=== PATIENT | female | born 1980 | race Caucasian/White ===

== ENCOUNTER 2017-07-30 10:40 | Day surgery (SDC) | payer MEDICAID ==
[~2017-07-30] VITALS: Ht 182.9 cm; Wt 109.8 kg
[2017-07-30 10:40] VITALS: BP 130/64
[~2017-07-30 10:40] MED LIST: AMIT10TA6 PO; FERR-84 PO; PNV1TABL65 PO
[2017-07-30] MEDS ORDERED: ONDANSETRON 4 MG/2 ML (SDV) Z0FRAN IV ONE (11:00)
[2017-07-30] MEDS ORDERED: FAMOTIDINE 20MG/2ML IV (PEPCID) IV ONE (11:00)
[2017-07-30] MEDS ORDERED: ceFAZolin INJECTION 1,000 MG in NS (IVPB) 50 ML IV ONE (11:00)
[2017-07-30] MEDS ORDERED: BUP/EPI 0.5% 1:200,000 (SENSORCAINE) 30 ML VIAL ONE (11:27)
[2017-07-30 11:38] LABS: HEMOGLOBIN 10.7 G/DL (11.5-16.0); MEAN PLATELET VOLUME 9.5 FL (7.4-10.4); RED BLOOD COUNT 4.45 10^6/uL (4.35-5.85); RED CELL DISTRIBUTION WIDTH 22.4 % (10.0-14.5); WHITE BLOOD COUNT 5.4 10^3/uL (4.3-11.0)
[2017-07-30] MEDS: LACTATED RINGERS 1,000 ML IV PRN ×2 (12:01→14:15)
[2017-07-30] MEDS ORDERED: proPOfol 200 MG/20 ML (DIPRIVAN) VIAL IV ONE (12:55)
[2017-07-30] MEDS ORDERED: ONDANSETRON 4 MG/2 ML (SDV) Z0FRAN ONE (12:55)
[2017-07-30] MEDS ORDERED: NEOSTIGMINE 1 MG/ML 5 ML SYRINGE ONE (12:55)
[2017-07-30] MEDS ORDERED: SEVOFLURANE (ULTANE) 15 ML INHAL SOLN ONE (12:55)
[2017-07-30] MEDS ORDERED: fentaNYL INJECTION 100 MCG/2 ML AMP ONE ×2 (12:55→15:08)
[2017-07-30] MEDS ORDERED: GLYCOPYRROLATE 0.2 MG/ML (ROBINUL) 2 ML VIAL ONE (12:55)
[2017-07-30] MEDS ORDERED: LIDOCAINE PF 2% 5 ML (XYLOCAINE) VIAL ONE (12:55)
[2017-07-30] MEDS ORDERED: DEXAMETHASONE 10 MG/ML (DECADRON) 1 ML VIAL ONE (12:55)
[2017-07-30] MEDS ORDERED: ROCURONIUM 10 MG/ML 5 ML SYRINGE IV ONE (12:55)
[2017-07-30] MEDS ORDERED: MIDAZOLAM 2 MG/2 ML (VERSED) VIAL ONE (12:56)
[2017-07-30] MEDS ORDERED: D5 LR IV SOLUTION 1,000 ML IV SCH (13:31)
--- NOTE | 2017-07-30 13:31 | Progress Note-Pre Operative ---
Pre-Operative Progress Note H&P Reviewed The H&P was reviewed, patient examined and no changes noted. Date Seen by Provider: July 30, 2017 Time Seen by Provider: 13:30 Date H&P Reviewed: July 30, 2017 Time H&P Reviewed: 13:30 Pre-Operative Diagnosis: DUB/menorrhagia/anemia HERMILA SALGADO MD July 30, 2017 1:31 pm
--- NOTE | 2017-07-30 13:31 | Progress Note-Post Operative ---
Post-Operative Progess Note Surgeon (s)/Funeral Planning Counselor (s) Surgeon HERMILA SALGADO MD Funeral Planning Counselor: Joanie Pitts Pre-Operative Diagnosis DUB/menorrhagia/anemia Post-Operative Diagnosis Same with pathology pending Procedure & Operative Findings Date of Procedure 07/30/17 Procedure Performed/Findings TH with bilateral salpingectomy Anesthesia Type GETA Estimated Blood Loss Estimated blood loss (mL): Minimal Specimens/Packing Specimens Removed Uterus and fallopian tubes Packing: none HERMILA SALGADO MD July 30, 2017 1:31 pm
[2017-07-30] MEDS ORDERED: IBUP-1780 PO (13:36)
[2017-07-30] MEDS ORDERED: DOCU-143 PO (13:36)
[2017-07-30] MEDS ORDERED: OXYC-197 PO (13:36)
--- NOTE | 2017-07-30 13:38 | Discharge Instructions ---
Discharge Instructions Discharge Medications New, Converted or Re-Newed RX: RX on Chart Patient Instructions Patient Instructions: as Directed Return to The Hospital For: As directed Activity & Diet Discharge Diet: No Restrictions Activity as Tolerated: No Orders-Post D/C & Referrals Follow Up Appt: Return to clinic on Sunday, August 01, 2017 at 930 a.m. for staple removal Call to make follow up appt. for patient in 4 weeks. Activity: Rest for 24 hours, than as tolerated. Wound Care: May remove Band-Aid tomorrow. Replace as desired. Keep incisions clean and dry. Wash daily with soap and water. Please call in RX to patient pharmacy. Diet: As tolerated-Clear Liquids only if nauseated. may shower or tub bathe as desired. No driving for 24 hours, no alcoholic beverages for 24 hours, and nothing per vagina (no tampons, douching, or intercourse) for 8 weeks. Patient to return to the clinic as soon as possible for: Temperature greater than 101F, Severe Pain, Foul discharge from incision or vagina, Excessive Bleeding (more than a period). HERMILA SALGADO MD July 30, 2017 1:38 pm
[2017-07-30] MEDS ORDERED: ONDANSETRON 4 MG/2 ML (SDV) Z0FRAN IVP PRN ×2 (13:45→15:45)
[2017-07-30] MEDS ORDERED: PROMETHAZINE INJ 25 MG/ML (PHENERGAN) AMP IM PRN (13:45)
[2017-07-30] MEDS ORDERED: KETOROLAC 30 MG/ML VIAL IVP SCH ×2 (13:45→18:00)
[2017-07-30] MEDS ORDERED: MEPERIDINE (DEMEROL) INJ 100 MG/ML IM PRN (13:45)
[2017-07-30] MEDS ORDERED: morphine INJ 10 MG/ML 1ML (SYR OR VIAL) ONE (15:25)
[2017-07-30] MEDS ORDERED: KETOROLAC 30 MG/ML VIAL ONE (15:25)
[2017-07-30] MEDS ORDERED: HYDROmorphone 1 MG/ML (DILAUDID) 1 ML SYRINGE ONE (15:26)
[2017-07-30] MEDS: morphine INJ 10 MG/ML 1ML (SYR OR VIAL) IVP PRN ×2 (15:30→15:37)
[2017-07-30] MEDS: KETOROLAC 30 MG/ML VIAL IVP SCH ×2 (15:32→22:38)
[2017-07-30] MEDS ORDERED: MEPERIDINE (DEMEROL) INJ 50 MG/ML IVP PRN (15:45)
[2017-07-30] MEDS ORDERED: HYDROmorphone 1 MG/ML (DILAUDID) 1 ML SYRINGE IV PRN (15:45)
[2017-07-30 16:10] VITALS: BP 104/66
[2017-07-30] MEDS: oxyCODONE/APAP 5/325MG (PERCOCET 5) TABLET PO PRN (18:46)
[2017-07-30 18:49] VITALS: BP 107/65
--- OUTSIDE RECORDS SUMMARY | 2017-07-30 18:59 | XMS REPORT ---
Author Author DARRICK COVARRUBIAS Organization [facility] Address [address] [place] [address] Care Team Providers Care Specimen Accessioner Name Role Phone COVARRUBIASDARRICK Watters Unavailable PROBLEMS Type Condition ICD9-CM Code VKB13-SN Code Onset Dates Condition Status SNOMED Code Problem Abnormal CBC R79.89 Active 529099328 Problem Iron deficiency anemia secondary to inadequate dietary iron intake D50.8 Active 647182808 Problem Bipolar II disorder F31.81 Active 34944759 Problem Generalized anxiety disorder F41.1 Active 45892243 Problem Obesity (BMI 30.0-34.9) E66.9 Active 285604024576223 Problem Intractable migraine with aura with status migrainosus G43.111 Active 513272447 Problem Severe episode of recurrent major depressive disorder, without psychotic features F33.2 Active 72789838 Problem Menorrhagia with regular cycle N92.0 Active 280209229 ALLERGIES No Information ENCOUNTERS Encounter Location Date Diagnosis [facility] [address] [address] 15 Mar, 2017 Intractable migraine with aura with status migrainosus G43.111 [facility] [id number] [place] [phone] Mar, [facility] [address] [address] Mar, Bipolar II disorder F31.81 and Generalized anxiety disorder F41.1 [facility] [address] [phone] Mar, Fever R50.9 and Viral URI J06.9 [facility] [id number] [place] [address] 02 Mar, 2017 Bipolar II disorder F31.81 [facility] [address] [place] [address] 17 Jan, 2017 Bipolar II disorder F31.81 and Generalized anxiety disorder F41.1 [place] [id number] [place] [address] 14 Jan, 2017 Severe episode of recurrent major depressive disorder, without psychotic features F33.[address] [address] 19 Dec, 2016 Iron deficiency anemia secondary to inadequate dietary iron intake D50.8 [place] [id number] [place] [address] 16 Dec, 2016 Abnormal CBC R79.89 [place] [id number] [place] [address] 13 Dec, 2016 Abnormal CBC R79.89 [place] [id number] [place] [address] 12 Dec, 2016 Encounter to establish care Z76.89 ; Intractable migraine with aura with status migrainosus G43.111 ; Menorrhagia with regular cycle N92.0 ; Obesity (BMI 30.0-34.9) E66.9 and Encounter for immunization Z23 [place] [id number] [place] [address] Dec, Intractable migraine with aura with status migrainosus G43.111 [place] [id number] [place] [address] Nov, Intractable migraine with aura with status migrainosus G43.111 IMMUNIZATIONS No Known Immunizations SOCIAL HISTORY Never Assessed REASON FOR VISIT Topamax increase PLAN OF CARE VITAL SIGNS MEDICATIONS Medication Instructions Dosage Frequency Start Date End Date Duration Status Topamax 50 mg Orally Twice a day 1 tablet 12h 19 Nov, 2016 90 days Active RESULTS No Results PROCEDURES No Known procedures INSTRUCTIONS MEDICATIONS ADMINISTERED No Known Medications MEDICAL (GENERAL) HISTORY Type Description Date Medical History migraines Surgical History C- section x3 Surgical History cholecystectomy Surgical History Tubal ligation Hospitalization History past surgery Hospitalization History 72 hour hold s/p self harm in [place] age 19
--- OUTSIDE RECORDS SUMMARY | 2017-07-30 18:59 | XMS REPORT ---
Author Author DARRICK COVARRUBIAS Organization [facility] Address [address] [place] [address] Care Team Providers Care Change Manager Name Role Phone COVARRUBIASDARRICK Watters Unavailable PROBLEMS Type Condition ICD9-CM Code TCC33-XI Code Onset Dates Condition Status SNOMED Code Problem Abnormal CBC R79.89 Active 727221019 Problem Iron deficiency anemia secondary to inadequate dietary iron intake D50.8 Active 762632726 Problem Bipolar II disorder F31.81 Active 96191470 Problem Generalized anxiety disorder F41.1 Active 20636017 Problem Obesity (BMI 30.0-34.9) E66.9 Active 183354072574038 Problem Intractable migraine with aura with status migrainosus G43.111 Active 961490129 Problem Severe episode of recurrent major depressive disorder, without psychotic features F33.2 Active 30683694 Problem Menorrhagia with regular cycle N92.0 Active 715857601 ALLERGIES Substance Reaction Event Type Date Status Ultram Unknown Drug Allergy Nov, Active ENCOUNTERS Encounter Location Date Diagnosis [facility] [id number] [place] [address] Mar, Intractable migraine with aura with status migrainosus G43.111 [facility] [address] [place] [address] Mar, [facility] [id number] [place] [address] Mar, Bipolar II disorder F31.81 and Generalized anxiety disorder F41.1 [facility] [id number] [place] [address] Mar, Fever R50.9 and Viral URI J06.9 [facility] [id number] [place] [address] Mar, Bipolar II disorder F31.81 [place] [id number] [place] [address] 17 Jan, 2017 Bipolar II disorder F31.81 and Generalized anxiety disorder F41.1 [place] [id number] [place] [address] 14 Jan, 2017 Severe episode of recurrent major depressive disorder, without psychotic features F33.2 [place] [address] [address] 19 Dec, 2016 Iron deficiency anemia secondary to inadequate dietary iron intake D50.8 [place] [address] [address] 16 Dec, 2016 Abnormal CBC R79.89 [place] [address] [address] 13 Dec, 2016 Abnormal CBC R79.89 [place] [address] [address] 12 Dec, 2016 Encounter to establish care Z76.89 ; Intractable migraine with aura with status migrainosus G43.111 ; Menorrhagia with regular cycle N92.0 ; Obesity (BMI 30.0-34.9) E66.9 and Encounter for immunization Z23 [place] [id number] [place] [address] Dec, Intractable migraine with aura with status migrainosus G43.111 [place] [id number] [place] [address] Nov, Intractable migraine with aura with status migrainosus G43.111 IMMUNIZATIONS Vaccine Route Administration Date Status TORADOL (IM) 60 MG/2ML (UP TO 15 MG) IM Intramuscular Nov 28, 2016 Administered SOCIAL HISTORY Never Assessed REASON FOR VISIT Migraine , blurry vision , dizziness, nausea since october 30 -- amadou juarez PLAN OF CARE Activity Details Follow Up 4 Weeks Reason:needs to est care VITAL SIGNS Height 6'0" in 2016-11-28 Weight 248.0 lbs 2016-11-28 Temperature 98.0 degrees Fahrenheit 2016-11-28 Heart Rate 78 bpm 2016-11-28 Respiratory Rate 20 2016-11-28 BMI 33.63 kg/m2 2016-11-28 Blood pressure systolic 136 mmHg 2016-11-28 Blood pressure diastolic 70 mmHg 2016-11-28 MEDICATIONS Medication Instructions Dosage Frequency Start Date End Date Duration Status Topamax 25 MG Orally Twice a day 1 tablet 12h Nov, 90 days Active Excedrin Migraine 250-250-65 MG Orally every 6 hrs 2 tablets as needed 6h Active Fioricet 50-325-40 MG Orally every 4 hrs 1 tablet as needed 4h Nov, Nov, 10 days Active RESULTS No Results PROCEDURES Procedure Date Ordered Result Body Site TORADOL (IM) 60 MG/2ML (UP TO 15 MG) Nov 28, 2016 THER/PROPH/DIAG INJ, SC/IM Nov 28, 2016 INSTRUCTIONS MEDICATIONS ADMINISTERED No Known Medications MEDICAL (GENERAL) HISTORY Type Description Date Medical History migraines Surgical History C- section x3 Surgical History cholecystectomy Surgical History Tubal ligation Hospitalization History past surgery Hospitalization History 72 hour hold s/p self harm in [place] age 19
--- NOTE | 2017-07-30 22:46 | OPERATIVE REPORT ---
DATE OF SERVICE: 07/30/2017 PREOPERATIVE DIAGNOSIS: Dysfunctional uterine bleeding/menorrhagia/anemia. POSTOPERATIVE DIAGNOSIS: Dysfunctional uterine bleeding/menorrhagia/anemia with pathology pending. OPERATIVE PROCEDURE: Total laparoscopic hysterectomy with bilateral salpingectomies. OPERATIVE DESCRIPTION: With the patient in the supine position under satisfactory general anesthesia, she was repositioned in dorsal lithotomy position in the [facility] and prepped and draped in usual fashion for abdominal and vaginal surgery. Urinary bladder was drained via Candelario catheter to dependent drainage. A weighted speculum placed in posterior fornix of vagina, cervix exposed and grasped anteriorly with single tooth tenaculum. Uterus was sounded to 12.5 cm with uterine sound. The cervix was then serially dilated with Nick dilators to accommodate a Diane II manipulator, which was placed using a 6 mm x 8 cm uterine probe and a 30 mm colpotomy ring. Sutures of #1 Vicryl placed at 3 o'clock and 9 o'clock position of the cervix to affix the uterus to the manipulator. The patient brought now in the low dorsal lithotomy position after removal of the tenaculum and speculum. The upper abdomen was exposed. A 12 mm incision was made just superior to the umbilicus, 8 mm incisions were made 9 cm lateral to the umbilicus. All incision sites were infiltrated with 0.25% Marcaine with epinephrine prior to incision. A Veress needle was placed through the upper midline incision. Correct placement confirmed with water drop test. The abdomen was insufflated with 2.9 liters of carbon dioxide. The Veress needle was removed and a 12 mm Optiview laparoscopic port placed. The abdominal wall was transilluminated and 8 mm ports were placed through the lateral incision. The patient now placed in Trendelenburg. The da Josselyn column was advanced on the patient and docked and I retired to the da Josselyn console using a vessel sealer on the right and a bipolar fenestrated grasper on the left. The pelvis was first examined. Both ovaries appeared normal. Both fallopian tubes showed evidence of remote tubal sterilization. There were some adhesions involving the fallopian tube and the bowel and the ovary on the left. These were taken down to allow for the intended procedure. The appendix was identified. It was a normal vermiform appendix. It was left in situ. The right fallopian tube was grasped and elevated. The mesosalpinx was clamped, cauterized and divided using the vessel sealer that was continued over to the uteroovarian pedicle, which was clamped, cauterized and divided in the same manner as was the round ligament, the broad ligament and eventually the cardinal ligament. Same procedure was performed on the left. Although the distal portion of fallopian tube was completely separate from the specimen, it was left on the pelvic sidewall with intent to remove it later. The dissection was carried down to the cardinal ligament on the left in the same manner as on the right. The anterior lower uterine segment peritoneum was now divided. The bladder was dissected down off the lower uterine segment exposing the vaginal wall over the manipulator ring. A vaginotomy incision made in 12 o'clock position. That incision was extended circumferentially until the entire colpotomy ring was exposed which allowed the uterus with a right fallopian tube still attached and the proximal left fallopian tube to be extracted through the vagina. That was done with little bit of difficulty as the uterus was quite large. It was very mottled in appearance consistent with adenomyosis. The vaginal cuff was closed with two V-Loc barbed sutures starting first on the right angle and continuing to the midportion of the cuff being sure to include the pedicles of the cauterized and divided uterine arteries. Both ureters were seemed to peristalse before, during and after these portions of the procedure. The left portion of the vaginal cuff was treated in the same manner. With the vaginal cuff completely reapproximated, both ureters were seemed to peristalse. I remembered at this point, I need to remove the left fallopian tube. It was grasped and divided from its remaining attachment. An attempt was made to bring it through the right lateral port that was unsuccessful. A portion of the fallopian tube was removed with the bulk of the tube remaining inside the peritoneal cavity that was retrieved from the port site and then an Endobag was placed through that incision and the rest of the left tube and ovary placed in that Endobag and brought out and sent to pathology for permanent section with the balance of the surgical specimens. With the procedure complete, no bleeding and no remaining abnormal pathology, the operative instruments were removed under direct vision as were the ports. The patient brought out of Trendelenburg. The abdomen was evacuated of the insufflating gas. The skin incisions were stapled closed after first closing the fascia at the supraumbilical incision with a [id number] suture of 2-0 Vicryl. A speculum replaced in the vagina. The vaginal cuff was examined and found completely hemostatic and completely reapproximated. Sponge and needle counts were correct at the end of procedure. Estimated blood loss was minimal. The patient tolerated the procedure well and was now uneventfully awakened from general anesthesia and transferred to recovery room in stable condition. Job ID: [id number] DocumentID: [id number] Dictated Date: 07/30/2017 15:14:16 Merchandise Worker Date: 07/30/2017 22:45:55 Dictated By: HERMILA SALGADO MD MTDD
[2017-07-31] VITALS: BP 120/74
[2017-07-31] MEDS: oxyCODONE/APAP 5/325MG (PERCOCET 5) TABLET PO PRN ×2 (01:08→06:02)
[2017-07-31] MEDS: KETOROLAC 30 MG/ML VIAL IVP SCH (04:56)
[2017-07-31 04:58] VITALS: BP 107/62
[2017-07-31 07:30] VITALS: BP 128/73
--- NOTE | 2017-07-31 07:50 | Progress Note-Standard ---
Standard Progress Note Progress Notes/Assess & Plan Date Seen by Provider: July 31, 2017 Time Seen by Provider: 07:49 Progress/Assessment & Plan This patient is without complaint. She is ambulating, voiding, tolerating oral intake well has good pain control with oral medication and is requesting discharge home. Vital Signs Date Time Temp Pulse Resp B/P (MAP) Pulse Ox O2 Delivery O2 Flow Rate FiO2 07/31/17 07:30 97.7 81 18 128/73 (91) 99 Room Air 07/31/17 04:58 97.8 79 18 107/62 (77) 07/31/17 00:00 97.8 79 18 120/74 (89) 99 Room Air 07/30/17 18:49 97.6 82 18 107/65 (79) 07/30/17 16:10 97.9 79 20 104/66 (79) Room Air 07/30/17 10:40 97.1 73 18 130/64 (86) 99 Room Air I & O 07/31/17 07:00 Intake Total 3450 ml Output Total 1550 ml Balance 1900 ml Vital signs are stable. Patient is afebrile. The abdomen is benign. Extreme show no clubbing cyanosis. There is no Homans sign. Assessment and plan postoperative day number 1 doing well plan is for discharge home with follow-up in clinic Final Diagnosis DUB /menorrhagia HERMILA SALGADO MD July 31, 2017 7:50 am
[2017-07-31 08:40] VITALS: BP 128/73
[2017-07-31] MEDS ORDERED: DOCUSATE SODIUM 100 MG (COLACE) CAP PO SCH (09:00)
--- NOTE | 2017-07-31 13:12 | Anesthesia-General Post-Op ---
General Patient Condition Mental Status/LOC: Same as Preop Cardiovascular: Satisfactory Nausea/Vomiting: Absent Respiratory: Satisfactory Pain: Controlled Complications: Absent Post Op Complications Complications None Follow Up Care/Instructions Patient Instructions None needed. Anesthesia/Patient Condition Patient Condition Patient is doing well, no complaints, stable vital signs, no apparent adverse anesthesia problems. No complications reported per nursing. D/C home per [facility] Criteria: Yes ADRIAN KANG CRNA July 31, 2017 13:12
[2017-07-31] MEDS ORDERED: IBUPROFEN 800 MG (MOTRIN) TAB PO SCH (16:00)
== END 2017-07-31 08:40 | disposition home or self-care (01) ==
LOC: SDC 10:40 → WS 16:10 → SDC 07-31 08:40
PROVIDERS: ATTEND Obstetrics & Gynecology
DX: N83.8 Other noninflammatory disorders of ovary, fallopian tube and broad ligament (principal); N94.89 Other specified conditions associated with female genital organs and menstrual cycle; N72 Inflammatory disease of cervix uteri; N80.0 Endometriosis of uterus; N92.0 Excessive and frequent menstruation with regular cycle; G43.909 Migraine, unspecified, not intractable, without status migrainosus; F41.9 Anxiety disorder, unspecified; Z79.899 Other long term (current) drug therapy; Z88.6 Allergy status to analgesic agent
CPT/HCPCS: 36415; 84703; 85027; 86850; 86900; 86901; 88307